=== PATIENT | female | born 1960 | race Caucasian/White ===

== ENCOUNTER → 2016-06-13 | Outpatient (CLI) | payer BC ==
[~2016-06-13] VITALS: Ht 154.9 cm; Wt 108.9 kg
[~2016-06-13] MED LIST: CARTIA XT120 MG PO; COZAAR25 MG PO; CYANOCOBAL1000 MCG/2 IM; FUROSEMIDE80 MG PO; IMDUR30 MG PO; IMURAN50 MG PO; K-DUR20 MEQ PO; KLOR-CON20 MEQ PO; LASIX40 MG PO; LIDEX 0.05% OIN15 GM TP; LIPITOR10 MG PO; LIPITOR40 MG PO; LO-DOSE ASPIRIN81 M1 PO; LOPRESSOR25 MG PO; METAMUCIL PACKE1 PKT PO; MOTRIN600 MG PO; NITROSTAT0.4 MG SL; OMEPRAZOLE40 M1 PO; PAXIL20 MG PO; PAXIL40 MG PO; PLAVIX75 MG PO; PREDNISONE10 MG PO; ULTRAM50 MG PO; VITAMIN B-1000 MCG/1 IJ; Vitamin B12 inj IM; ZOLOFT100 MG PO
[2016-06-13 14:21] LABS: POINT-OF-CARE METER ID UU13113819
== END | disposition home or self-care (01) ==
LOC: AMB 12:08
PROVIDERS: Internal Medicine
DX: R10.9 Unspecified abdominal pain (principal); K26.9 Duodenal ulcer, unspecified as acute or chronic, without hemorrhage or perforation; K29.90 Gastroduodenitis, unspecified, without bleeding; I10 Essential (primary) hypertension; I25.10 Atherosclerotic heart disease of native coronary artery without angina pectoris; K75.4 Autoimmune hepatitis; E66.01 Morbid (severe) obesity due to excess calories; Z68.42 Body mass index [BMI] 45.0-49.9, adult
CPT/HCPCS: 82948; 88305; 88342 TC; B4087

== ENCOUNTER → 2016-08-11 | Outpatient (CLI) | payer BC ==
[~2016-08-11] VITALS: Ht 154.9 cm; Wt 109.7 kg
== END | disposition home or self-care (01) ==
LOC: AMB 11:27
DX: D12.2 Benign neoplasm of ascending colon (principal); D12.3 Benign neoplasm of transverse colon; D12.5 Benign neoplasm of sigmoid colon; K63.5 Polyp of colon; K62.1 Rectal polyp; K62.5 Hemorrhage of anus and rectum; R10.32 Left lower quadrant pain; I10 Essential (primary) hypertension; C54.1 Malignant neoplasm of endometrium; E78.5 Hyperlipidemia, unspecified; E66.01 Morbid (severe) obesity due to excess calories; Z68.42 Body mass index [BMI] 45.0-49.9, adult; R73.03 Prediabetes; D69.6 Thrombocytopenia, unspecified; Z80.3 Family history of malignant neoplasm of breast; Z82.49 Family history of ischemic heart disease and other diseases of the circulatory system; Z82.3 Family history of stroke; Z82.5 Family history of asthma and other chronic lower respiratory diseases; Z87.891 Personal history of nicotine dependence; Z79.82 Long term (current) use of aspirin
CPT/HCPCS: 88305; J2250; J3010

== ENCOUNTER 2016-11-24 08:49 | Inpatient (IN) | payer BC, OTHER ==
[~2016-11-24] VITALS: Ht 152.4 cm; Wt 107.0 kg
[2016-11-24 10:37] VITALS: BP 150/67
[2016-11-24 10:54] LABS: HEMATOCRIT 42.7 % (36.0-46.0); MCH 32.3 PG (29.0-34.0); MCV 95.1 FL (83-99); MEAN PLAT.VOLUME 12.9 uM^3 (9.5-12.4); RBC DIS.WIDTH-CV 13.6 % (11.8-14.6); RBC DIS.WIDTH-SD 47.8 % (39-53); RED BLOOD COUNT 4.49 M/uL (3.80-5.20)
[2016-11-24 10:57] LABS: PLATELET COUNT 107 K/uL (156-360)
[2016-11-24 12:12] LABS: EOSINOPHIL (%) 1.3 % (0-5); EOSINOPHIL COUNT 0.1 K/uL (0-0.3); LYMPHOCYTE COUNT 1.8 K/uL (1.0-2.8); MONOCYTE COUNT 0.4 K/uL (0-0.8); NEUTROPHIL (%) 57.8 % (45-76)
[2016-11-24 17:27] VITALS: BP 120/62
[2016-11-24 18:24] LABS: HEMATOCRIT 38.3 % (36.0-46.0); MCV 97.5 FL (83-99)
[2016-11-24 19:38] VITALS: BP 102/57
[2016-11-25 00:20] VITALS: BP 94/55
[2016-11-25 04:25] VITALS: BP 107/54
[2016-11-25 07:26] LABS: ANION GAP 15 MEQ/L (2-14); CHLORIDE 104 MEQ/L (99-109); GFR ESTIMATE (CALCULATED) 41 mL/min/; GLUCOSE 127 mg/dL (70-99); POTASSIUM 4.2 MEQ/L (3.7-5.4); SAMPLE HEMOLYSIS CHECK 0; SAMPLE ICTERIC CHECK 0; SAMPLE LIPEMIA CHECK 0; SODIUM 144 MEQ/L (136-147); UREA NITROGEN (BUN) 10 mg/dL (9-23)
[2016-11-25 08:00] VITALS: BP 100/55
[2016-11-25 12:08] VITALS: BP 111/57
[2016-11-25 15:41] VITALS: BP 94/51
[2016-11-25 20:20] VITALS: BP 109/53
[2016-11-26 00:23] VITALS: BP 99/56
[2016-11-26 04:12] VITALS: BP 115/52
[2016-11-26] MEDS ORDERED: OXYCODONE HCL5 MG PO (07:32)
[2016-11-26] MEDS ORDERED: XARELTO10 MG PO (07:32)
[2016-11-26] MEDS ORDERED: OXYCONTIN10 MG PO (07:32)
[2016-11-26 08:00] VITALS: BP 120/60
[2016-11-26] MEDS ORDERED: ENDOCET 5-3251 EACH PO (09:59)
[2016-11-26 11:45] VITALS: BP 118/50
== END 2016-11-26 14:57 | DRG 470 ==
LOC: 2SOUTH 08:49 → 3WEST 10:06 → 2SOUTH 10:06 → 3WEST 17:01
PROVIDERS: Anesthesiology; Orthopaedic Surgery Sports Medicine
PROC: 0SRC0J9 Replacement of Right Knee Joint with Synthetic Substitute, Cemented, Open Approach (ICD-10-PCS; principal; 2016-11-24)
DX: M17.11 Unilateral primary osteoarthritis, right knee (principal); Z68.42 Body mass index [BMI] 45.0-49.9, adult; I10 Essential (primary) hypertension; Z85.42 Personal history of malignant neoplasm of other parts of uterus; Z86.59 Personal history of other mental and behavioral disorders; Z95.5 Presence of coronary angioplasty implant and graft; Z82.49 Family history of ischemic heart disease and other diseases of the circulatory system; E66.9 Obesity, unspecified
CPT/HCPCS: 73560; 80048; 85014; 85018; 85025; 85027; 94799; C1713; J0690; J1885; J2250; J2405; J3010; J7050; L1820; P9035

== ENCOUNTER 2017-06-28 19:57 | Observation (INO) | payer BC ==
[~2017-06-28] VITALS: Ht 153.7 cm; Wt 103.0 kg
[~2017-06-28 19:57] MED LIST changes: +ENDOCET 5-3251 EACH PO; +OXYCODONE HCL5 MG PO; +OXYCONTIN10 MG PO; +XARELTO10 MG PO
[2017-06-28 20:32] LABS: HEMOGLOBIN 15.7 G/DL (11.9-15.5); MCHC 34.1 G/DL (30.0-36.0); MCV 93.7 FL (83-99); RBC DIS.WIDTH-CV 12.7 % (11.8-14.6); RBC DIS.WIDTH-SD 43.9 % (39-53); RED BLOOD COUNT 4.91 M/uL (3.80-5.20); WHITE BLOOD COUNT 6.3 K/uL (4.1-10.2)
[2017-06-28 20:51] LABS: CHLORIDE 106 MEQ/L (99-109); POTASSIUM 4.4 MEQ/L (3.7-5.4); SODIUM 143 MEQ/L (136-147)
[2017-06-28 20:57] LABS: CREATININE 0.7 MG/DL (0.6-1.3); GFR ESTIMATE (CALCULATED) > 59 mL/min/; GLUCOSE 78 mg/dL (70-99); UREA NITROGEN (BUN) 7 mg/dL (9-23)
[2017-06-28 21:01] LABS: TROP-I INTERPRETATION NEGATIVE; TROPONIN-I 0.03 ng/mL (0.0-0.30)
[2017-06-28 21:12] LABS: PLAT.SUFFICIENCY DECREASED; PLATELET COUNT 115 K/uL (156-360)
[2017-06-28] MEDS ORDERED: PROAIR HFA8.5 GM IH (22:27)
[2017-06-29 00:51] VITALS: BP 170/81
[2017-06-29 01:48] LABS: INTER. NORMALIZED RATIO 1.1
[2017-06-29 01:50] LABS: PTT 29.9 SEC (25-37)
[2017-06-29 03:14] LABS: HEMATOCRIT 42.5 % (36.0-46.0); HEMOGLOBIN 14.6 G/DL (11.9-15.5); MCH 32.2 PG (29.0-34.0); MCHC 34.4 G/DL (30.0-36.0); MCV 93.8 FL (83-99); PLATELET COUNT 101 K/uL (156-360); RBC DIS.WIDTH-CV 12.8 % (11.8-14.6); RBC DIS.WIDTH-SD 44.1 % (39-53); RED BLOOD COUNT 4.53 M/uL (3.80-5.20); WHITE BLOOD COUNT 6.9 K/uL (4.1-10.2)
[2017-06-29 03:35] LABS: TROP-I INTERPRETATION NEGATIVE; TROPONIN-I 0.02 ng/mL (0.0-0.30)
[2017-06-29 03:37] LABS: ALBUMIN 3.8 G/DL (3.2-4.8); CHLORIDE 104 MEQ/L (99-109); POTASSIUM 4.6 MEQ/L (3.7-5.4); SODIUM 142 MEQ/L (136-147); TOTAL BILIRUBIN 0.5 MG/DL (0.0-1.0)
[2017-06-29 03:43] LABS: ALKALINE PHOSPHATASE 97 IU/L (3-129); ALT (GPT) 51 IU/L (3-49); AST (GOT) 60 IU/L (2-34); CREATININE 0.7 MG/DL (0.6-1.3); GFR ESTIMATE (CALCULATED) > 59 mL/min/; TOTAL PROTEIN 6.3 G/DL (6.4-8.3); UREA NITROGEN (BUN) 7 mg/dL (9-23)
[2017-06-29 03:59] LABS: GLUCOSE 101 mg/dL (70-99)
[2017-06-29 04:51] LABS: HEMATOCRIT 41.6 % (36.0-46.0); HEMOGLOBIN 14.5 G/DL (11.9-15.5); MCH 32.6 PG (29.0-34.0); MCHC 34.9 G/DL (30.0-36.0); MCV 93.5 FL (83-99); PLATELET COUNT 97 K/uL (156-360); RBC DIS.WIDTH-CV 12.7 % (11.8-14.6); RBC DIS.WIDTH-SD 43.8 % (39-53); RED BLOOD COUNT 4.45 M/uL (3.80-5.20); WHITE BLOOD COUNT 6.9 K/uL (4.1-10.2)
[2017-06-29 05:00] VITALS: BP 134/68
[2017-06-29 07:45] VITALS: BP 116/63
[2017-06-29 09:54] LABS: TROP-I INTERPRETATION NEGATIVE; TROPONIN-I < 0.01 ng/mL (0.0-0.30)
[2017-06-29 12:35] VITALS: BP 123/71
[2017-06-29 23:15] VITALS: BP 116/75
[2017-06-30 03:15] VITALS: BP 118/71
[2017-06-30 08:04] VITALS: BP 116/67
[2017-06-30] MEDS ORDERED: RANEXA500 MG PO (09:39)
[2017-06-30 14:04] LABS: Heparin Induced Plt Ab Negative (Negative)
[2017-06-30 17:29] LABS: UFH SRA Result Negative (Negative)
== END 2017-06-30 12:25 | disposition home or self-care (01) ==
LOC: EME 19:57 → EDOF 23:05 → 5WEST 23:05 → ENRESERV 23:07 → 5WEST 06-29 00:51
PROVIDERS: Internal Medicine
DX: I25.110 Atherosclerotic heart disease of native coronary artery with unstable angina pectoris (principal); I25.2 Old myocardial infarction; Z95.5 Presence of coronary angioplasty implant and graft; I10 Essential (primary) hypertension; E78.5 Hyperlipidemia, unspecified; K74.60 Unspecified cirrhosis of liver; Z87.891 Personal history of nicotine dependence; Z79.82 Long term (current) use of aspirin; E66.9 Obesity, unspecified; Z68.41 Body mass index [BMI] 40.0-44.9, adult; K75.4 Autoimmune hepatitis; Z86.73 Personal history of transient ischemic attack (TIA), and cerebral infarction without residual deficits; M06.9 Rheumatoid arthritis, unspecified; D51.0 Vitamin B12 deficiency anemia due to intrinsic factor deficiency; Z85.42 Personal history of malignant neoplasm of other parts of uterus; Z96.651 Presence of right artificial knee joint
CPT/HCPCS: 71046; 80048; 80053; 84484; 85027; 85379; 85610; 85730; 86022 90; 93005; C1769; C1887; G0378; J1644; J2250; J2270; J3010; J7030